=== PATIENT | female | born 1950 | race Asian ===

== ENCOUNTER 2025-02-17 14:17 | Emergency (ER) | payer OTHER ==
[~2025-02-17] VITALS: Ht 162.6 cm; Wt 60.0 kg
[2025-02-17 14:23] VITALS: O2SAT 96
[2025-02-17] MEDS: SODIUM CHLORIDE 0.9% 1,000 ML IV ONE (14:56)
[2025-02-17] MEDS: LEVETIRACETAM 1000MG PREMIX 100 ML IV ONE (14:56)
[2025-02-17 15:37] LABS: BASOPHILS % 0.5 % (0.0-2.0); EOSINOPHILS % 0.2 % (0.0-5.0); HEMATOCRIT. 39.7 % (36.0-48.0); HEMOGLOBIN. 12.7 g/dL (12.0-16.0); LYMPHOCYTES % 16.3 % (20.0-50.0); MEAN PLATELET VOLUME 8.6 fl (7.4-10.4); MONOCYTES % 14.6 % (2.0-8.0); NEUTROPHILS % 68.4 % (40.0-76.0); PLATELET 74 x1000/uL (130-400); RED BLOOD CELL COUNT 4.34 mill/uL (4.2-5.4); RED CELL DISTRIBUTION WIDTH 14.3 % (11.6-14.6)
[2025-02-17 15:44] LABS: CREATININE 1.8 mg/dL (0.6-1.0)
[2025-02-17 15:45] LABS: ETHANOL BLOOD < 10 mg/dL (<10); UREA NITROGEN BLOOD 26 mg/dL (9-23)
[2025-02-17 15:46] LABS: ASPARTATE AMINOTRANSFERASE 92 IU/L (<34)
[2025-02-17 15:47] LABS: BILIRUBIN DIRECT 0.2 mg/dL (<=3.0); BILIRUBIN TOTAL 0.4 mg/dL (0.1-1.0); PROTEIN TOTAL 6.4 g/dL (6.0-8.3)
[2025-02-17] MEDS ORDERED: [UNRECOGNIZED DRUG - CODE] NAS (20:25)
[2025-02-17 20:50] VITALS: BP 136/57; PULSE 85; RESP 16; TEMP 36.9; O2SAT 97
== END 2025-02-17 21:09 | disposition home or self-care (01) ==
LOC: ER 14:17
DX: G40.909 Epilepsy, unspecified, not intractable, without status epilepticus (principal); E86.0 Dehydration; E11.65 Type 2 diabetes mellitus with hyperglycemia; N28.9 Disorder of kidney and ureter, unspecified; Z86.73 Personal history of transient ischemic attack (TIA), and cerebral infarction without residual deficits; Z88.0 Allergy status to penicillin
CPT/HCPCS: 80076; 80048; 80320; 85025; 36415; 70450; 93005; 96365; 99285; J1953; J7030; G0480